=== PATIENT | female | born 1985 | race Caucasian/White ===

== ENCOUNTER 2021-02-21 12:41 | Emergency (ER) | payer MEDICAID, SELFPAY ==
[2021-02-21 13:39] VITALS: BP 107/71; PULSE 64; RESP 22; TEMP 36.9; O2SAT 99
[2021-02-21 17:29] LABS: Basophils # 0.1 10^3/uL (0.0-0.1); Basophils % 1.1 %; Eosinophils # 0.4 10^3/uL (0.0-0.8); Eosinophils % 4.9 %; Hematocrit 46.3 % (37.0-47.0); Hemoglobin 14.8 g/dL (11.5-15.3); Lymphocytes # 2.7 10^3/uL (0.8-4.8); Lymphocytes % 29.9 %; Mean Corpuscular Hemoglobin 29.6 pg (28.0-34.0); Mean Corpuscular Volume 92.6 fL (81-99); Mean Platelet Volume 11.3 fL (7.4-10.4); Monocytes # 0.4 10^3/uL (0.2-0.9); Monocytes % 4.6 %; Neutrophils # 5.35 10^3/uL (1.8-7.7); Neutrophils % 59.2 %; Nucleated Red Blood Cells % 0 %; Platelet Count 376 10^3/cmm (130-400); Red Cell Distribution Width 12.2 % (12.1-15.1); White Blood Count 9.1 10^3/uL (4.0-10.0)
[2021-02-21 17:52] LABS: HCG, Serum Qual Negative (Negative)
[2021-02-21 17:55] LABS: Alanine Aminotransferase 19 U/L (0-33); Albumin Level 4.6 g/dL (3.5-5.2); Alkaline Phosphatase 52 IU/L (35-105); Aspartate Amino Transferase 17 U/L (0-32); Blood Urea Nitrogen 7 mg/dL (6-20); Calcium 9.1 mg/dL (8.5-10.5); Carbon Dioxide 25 mmol/L (22-29); Chloride 102 mmol/L (98-107); Creatinine Clr Calc Pharmacy 151.0874; Globulin 2.9 g/dL (1.3-4.6); Glomerular Filtration Rate 140.4 mL/min (90-130); Glucose 95 mg/dL (65-115); Lipase 20 U/L (13-60); Osmolality Calculated 282 mOsm/kg (285-295); Sodium 137 mmol/L (136-145); Total Bilirubin 0.4 mg/dL (0.15-1.2); Total Protein 7.5 g/dL (6.6-8.7)
--- NOTE | 2021-02-21 20:24 | CTR_ITS ---
PROCEDURE INFORMATION: Exam: CT Abdomen And Pelvis With Contrast Exam date and time: 02/21/2021 8:24 PM Age: 35 years old Clinical indication: Abdominal pain; Localized; Left lower quadrant (llq); Patient HX: Llq pain; Additional info: Llq pain, HX of diveriticulitis TECHNIQUE: Imaging protocol: Computed tomography of the abdomen and pelvis with contrast. Radiation optimization: All CT scans at this facility use at least one of these dose optimization techniques: automated exposure control; mA and/or kV adjustment per patient size (includes targeted exams where dose is matched to clinical indication); or iterative reconstruction. Contrast material: OMNI 300; Contrast volume: 95 ml; Contrast route: INTRAVENOUS (IV); COMPARISON: CT abdomen pelvis w con* [id number] 03/11/2019 8:37 PM RADIATION DOSE METRICS: Total DLP (mGy-cm): 1293.72 FINDINGS: Liver: Probable subcentimeter cyst in the left hepatic lobe, unchanged. Gallbladder and bile ducts: Normal. No calcified stones. No ductal dilation. Pancreas: Normal. No ductal dilation. Spleen: Probable subcentimeter cyst in the spleen. Adrenal glands: Normal. No mass. Kidneys and ureters: Normal. No hydronephrosis. Stomach and bowel: Unremarkable. No obstruction. No mucosal thickening. Appendix: No evidence of appendicitis. Intraperitoneal space: Unremarkable. No free air. No significant fluid collection. Vasculature: Unremarkable. No abdominal aortic aneurysm. Lymph nodes: Unremarkable. No enlarged lymph nodes. Urinary bladder: Unremarkable as visualized. Reproductive: Intrauterine IUD in expected positioning. Persistent 3.5 cm simple cyst in the left ovary. Bones/joints: Unremarkable. No acute fracture. Soft tissues: Unremarkable. CT/CT abdomen pelvis w con* [id number] IMPRESSION: 1. No acute findings. 2. Persistent simple appearing 3.5 cm cyst in the left ovary, unchanged from 2019 study. Radiation Dose CTDIVOL = (mGy): DLP = 1293.72 (mGy-cm)
--- NOTE | 2021-02-21 20:25 | W.ED.ABDPA2 ---
HPI - Abdominal Pain General: Chief Complaint: Abdominal Pain Stated Complaint: LLQ ABD PAIN,[place] [facility] [place] Seen by Provider: 02/21/21 20:24 History of Present Illness: HPI narrative: 35-year-old female comes in today with left lower quadrant abdominal pain for about 1 week. Patient reports last week was helping move a refrigerator and felt a pop in her left lower quadrant. Patient does have a history of diverticulitis and colitis. Patient was concerned for probable hernia. Patient appears well. Patient appears in mild to moderate pain. MD elicited complaint: abdominal pain Pertinent past history: diverticulitis Onset (ago): day(s) Pain Consistency: intermittent Location: LLQ Quality: aching Exacerbating factors: bowel movement Review of Systems General: Reports: 10 or more systems reviewed and unremarkable except in HPI and below GI: Reports: abdominal pain PFSH ED PFSH: Social History (Updated 08/12/20 @ 16:49 by Olimpia Mcguire LPN) Smoking and tobacco status: current every day smoker Physical Exam Const: COMMON NORMALS: no acute distress and patient oriented x3 GENERAL APPEARANCE: cooperative HENMT: COMMON NORMALS: normocephalic and Normal external nose present HEAD & SCALP: normal to inspection and normocephalic NOSE: Normal external nose present MOUTH: Normal oral and palatal mucosa present Eye: GENERAL EYE: appearance normal, both eyes and all related structures Neck/C-Spine: COMMON NORMALS: full ROM Lymph: LYMPHATIC: no lymphadenopathy noted Chest: COMMONS NORMALS: normal inspection of the chest Resp: COMMON NORMALS: normal respiratory effort EFFORT & INSPECTION: Yes able to speak in complete sentences Cardio: COMMON NORMALS: regular rate and regular rhythm RATE: regular rate RHYTHM: regular rhythm GI: COMMON NORMALS: Soft to palpation AUSCULTATION: Yes normoactive bowel sounds PALPATION: Yes Soft to palpation and Yes Tenderness to palpation present (GI) Details: LLQ : COMMON NORMALS: Yes no CVA tenderness BLADDER/KIDNEY EXAM: Yes no CVA tenderness Back/Pelvis: COMMON NORMALS: no CVA tenderness and thoracic and lumbar spine normal to inspection Extremity: COMMON NORMALS: normal to inspection Neuro: COMMON NORMALS: patient oriented x3 and moves all extremities Psych: COMMON NORMALS: mental status grossly normal and cooperative Skin: COMMON NORMALS: no rashes or lesions noted GENERAL SKIN EXAM: no rashes or lesions noted Course Vital Signs: Vital signs: Vital Signs Temperature 98.5 F 02/21/21 13:39 Pulse Rate 71 02/21/21 20:46 Respiratory Rate 18 02/21/21 20:46 Blood Pressure 102/62 02/21/21 20:46 Pulse Oximetry 97 02/21/21 20:46 MDM - Abdominal Pain MDM Narrative: Medical decision making narrative: 35-year-old female comes in with left lower quadrant abdominal pain. Patient admits to lifting a heavy object last week and since then has had left lower quadrant abdominal pain. Patient was concerned that she may have a hernia. Patient reports increased pain with bowel movement. Vital signs are normal. Abdomen is soft with some left lower quadrant abdominal pain. Differential diagnosis includes but not limited to diverticulitis, hernia, bowel obstruction. Laboratory values were unremarkable. CT scan abdomen pelvis indicated a simple cyst to the left ovary but otherwise a normal exam. Reviewed exam with patient with recommendations for treatment for a muscle strain. Patient reported understanding agreed to plan. Lab Data: Labs: Lab Results 02/21/21 02/21/21 02/21/21 Range/Units 17:14 17:14 17:14 WBC 9.1 (4.0-10.0) 10^3/ uL RBC 5.00 (4.1-5.3) 10^6/u L Hgb 14.8 (11.5-15.3) g/dL Hct 46.3 (37.0-47.0) % MCV 92.6 (81-99) fL MCH 29.6 (28.0-34.0) pg MCHC 32.0 (30.0-36.0) g/dL RDW 12.2 (12.1-15.1) % Plt Count 376 (130-400) 10^3/c mm MPV 11.3 H (7.4-10.4) fL Neut % (Auto) 59.2 % Lymph % (Auto) 29.9 % [place] % (Auto) 4.6 % Eos % (Auto) 4.9 % Baso % (Auto) 1.1 % Neut # (Auto) 5.35 (1.8-7.7) 10^3/u L Lymph # (Auto) 2.7 (0.8-4.8) 10^3/u L [place] # (Auto) 0.4 (0.2-0.9) 10^3/u L Eos # (Auto) 0.4 (0.0-0.8) 10^3/u L Baso # (Auto) 0.1 (0.0-0.1) 10^3/u L Nucleated RBC % (a uto) 0 % Nucleated RBCs # 0.0 /100WBC Sodium 137 (136-145) mmol/L Potassium 4.0 (3.5-5.1) mmol/L Chloride 102 (98-107) mmol/L Carbon Dioxide 25 (22-29) mmol/L Anion Gap 14.0 (5-19) BUN 7 (6-20) mg/dL Creatinine 0.5 (0.5-0.9) mg/dL GFR Calculation 140.4 H (90-130) mL/min Glucose 95 (65-115) mg/dL Calculated Osmolal ity 282 L (285-295) mOsm/k g Calcium 9.1 (8.5-10.5) mg/dL Total Bilirubin 0.4 (0.15-1.2) mg/dL AST 17 (0-32) U/L ALT 19 (0-33) U/L Alkaline Phosphata se 52 (35-105) IU/L Total Protein 7.5 (6.6-8.7) g/dL Albumin 4.6 (3.5-5.2) g/dL Globulin 2.9 (1.3-4.6) g/dL Lipase 20 (13-60) U/L HCG, Qual Negative (Negative) Urine Color (Yellow) Urine Appearance (CLEAR) Urine pH (5-7) Ur Specific Gravit y (1.005-1.030) Urine Protein (Negative) Urine Glucose (UA) (Normal) Urine Ketones (Negative) Urine Blood (Negative) Urine Nitrate (Negative) Urine Bilirubin (Negative) Urine Urobilinogen (Negative) mg/dL Ur Leukocyte Lizz ase (Negative) Urine RBC (0-2) /hpf Urine WBC (0-5) /hpf Ur Squamous Epith Cells (0-5) /hpf Amorphous Sediment Urine Bacteria (NONE) /hpf Urine Mucus /hpf 02/21/ Range/Units 20:38 WBC (4.0-10.0) 10^3/ uL RBC (4.1-5.3) 10^6/u L Hgb (11.5-15.3) g/dL Hct (37.0-47.0) % MCV (81-99) fL MCH (28.0-34.0) pg MCHC (30.0-36.0) g/dL RDW (12.1-15.1) % Plt Count (130-400) 10^3/c mm MPV (7.4-10.4) fL Neut % (Auto) % Lymph % (Auto) % [place] % (Auto) % Eos % (Auto) % Baso % (Auto) % Neut # (Auto) (1.8-7.7) 10^3/u L Lymph # (Auto) (0.8-4.8) 10^3/u L [place] # (Auto) (0.2-0.9) 10^3/u L Eos # (Auto) (0.0-0.8) 10^3/u L Baso # (Auto) (0.0-0.1) 10^3/u L Nucleated RBC % (a uto) % Nucleated RBCs # /100WBC Sodium (136-145) mmol/L Potassium (3.5-5.1) mmol/L Chloride (98-107) mmol/L Carbon Dioxide (22-29) mmol/L Anion Gap (5-19) BUN (6-20) mg/dL Creatinine (0.5-0.9) mg/dL GFR Calculation (90-130) mL/min Glucose (65-115) mg/dL Calculated Osmolal ity (285-295) mOsm/k g Calcium (8.5-10.5) mg/dL Total Bilirubin (0.15-1.2) mg/dL AST (0-32) U/L ALT (0-33) U/L Alkaline Phosphata se (35-105) IU/L Total Protein (6.6-8.7) g/dL Albumin (3.5-5.2) g/dL Globulin (1.3-4.6) g/dL Lipase (13-60) U/L HCG, Qual (Negative) Urine Color Yellow (Yellow) Urine Appearance Clear (CLEAR) Urine pH 5 (5-7) Ur Specific Gravit y 1.020 (1.005-1.030) Urine Protein Neg (Negative) Urine Glucose (UA) Norm (Normal) Urine Ketones 1+ H (Negative) Urine Blood Neg (Negative) Urine Nitrate Negative (Negative) Urine Bilirubin Neg (Negative) Urine Urobilinogen Norm (Negative) mg/dL Ur Leukocyte Lizz ase 1+ H (Negative) Urine RBC 0-4 H (0-2) /hpf Urine WBC 0-4 H (0-5) /hpf Ur Squamous Epith Cells 10-15 H (0-5) /hpf Amorphous Sediment Not Reportable Urine Bacteria Trace (NONE) /hpf Urine Mucus Trace /hpf Discharge Plan Discharge Patient Disposition: Home Clinical Impression: Abdominal muscle strain Qualifiers: Encounter type: initial encounter Qualified Code(s): S39.011A - Strain of muscle, fascia and tendon of abdomen, initial encounter Condition: Stable Prescriptions: No Action Tylenol 325 mg Tablet 325 mg PO QID PRN (Reason: PAIN/FEVER) RF: 0 Gas Relief (simethicone) 125 mg Capsule 125 mg PO DAILY PRN (Reason: UNKNOWN) RF: 0 Dramamine 50 mg Tablet 50 mg PO Q8H PRN (Reason: UNKNOWN) RF: 0 Excedrin Migraine 250-250-65 mg Tablet 1 tab PO Q6H PRN (Reason: Migraine Headache) RF: 0 Discharge Orders: Discharge ED (Routine); Ordered 02/21/21 Ordered By: Manuel Ruiz Discharge Diet: Usual diet Discharge Activity: Increase activity as tolerated Patient Instructions: Muscle Strain (ED), Opioid Safety Activity Restrictions/Additional Instructions: Activity as tolerated. Use ice or heat to the area for comfort. Use acetaminophen or ibuprofen for pain. Drink plenty of water. Follow-up with primary care as needed. Return to the ER for new concerns. Stand Alone Forms: Work/School Release Coding Level of Care Code ED Parking Garage Manager for Chg Fwd Exam Comprehensive
[2021-02-21 20:46] VITALS: BP 102/62; PULSE 71; RESP 18; O2SAT 97
[2021-02-21] MEDS: ondansetron 2 mg/ML SDV 2 mL 4 MG IVP (20:53)
[2021-02-21] MEDS: ketorolac 30 mg/mL INJ 15 MG IVP (20:53)
[2021-02-21] MEDS: sodium chloride 0.9% 1,000 ML 999 ML IV (20:54)
[2021-02-21] MEDS: iohexol 300 mg/mL 100 mL Btl IV (21:06)
[2021-02-21 21:17] LABS: Add Urine Culture? No; Bacteria Urine TRACE /hpf; Bilirubin Urine Neg (Negative); Blood Urine Neg (Negative); Glucose Urine UA Norm (Normal); Ketones Urine 1+ (Negative); Leukocyte Esterase Urine 1+ (Negative); Mucus Urine TRACE /hpf; Nitrate Urine Negative (Negative); Protein Urine Neg (Negative); RBC Urine 0-4 /hpf (0-2); Urine Appearance Clear (CLEAR); Urine Color Yellow (Yellow); Urobilinogen Urine Norm (Negative); WBC Urine 0-4 /hpf (0-5); pH Urine 5 (5-7)
[2021-02-21 22:00] VITALS: BP 110/68; PULSE 69; RESP 16; O2SAT 98
== END 2021-02-21 22:26 | disposition home or self-care (01) ==
PROVIDERS: Physician Assistant; Emergency Provider Nurse Practitioner Family
DX: S39.011A Strain of muscle, fascia and tendon of abdomen, initial encounter (principal); F17.210 Nicotine dependence, cigarettes, uncomplicated; X50.0XXA Overexertion from strenuous movement or load, initial encounter
CPT/HCPCS: 74177; 80053; 81001; 83690; 84703; 85025; 87040; 96361; 96374; 96375; 99284; J1885; J2405; J7030; Q9967

== ENCOUNTER → 2021-03-27 11:31 | Outpatient (BNVA) | payer OTHER, SELFPAY | PROVIDERS: Visit Provider Nurse Practitioner Family | DX: Z20.822 Contact with and (suspected) exposure to COVID-19 (principal); J06.9 Acute upper respiratory infection, unspecified | CPT/HCPCS: 87635 ==

== ENCOUNTER 2022-05-14 10:59 | Outpatient (CLI) | payer MEDICAID, SELFPAY ==
--- NOTE | 2022-05-14 11:04 | MM_ITS ---
WS: [id number] SCREENING DIGITAL BREAST TOMOSYNTHESIS MAMMOGRAM WITH CAD HISTORY: SCREENING COMPARISON: 07/26/2014 Bilateral CC and MLO with tomosynthesis and synthetic mammography submitted. Computer aided detection analyzed. Breast composition: There are scattered areas of fibroglandular density. 6 x 7 mm well-circumscribed nodule in the anterior LEFT breast near 9:00. The remaining breasts are negative. No calcifications. MM/[place] [id number] IMPRESSION: BI-RADS: 0-Incomplete: Need additional imaging evaluation FOLLOW UP: Need Additional Imaging Recommendation: LEFT breast ultrasound follow-up, limited. Ultrasound directed medial LEFT breast at the nipple line, 8-10 o'clock.
== END 2022-05-14 11:00 | disposition home or self-care (01) ==
LOC: RAD 10:59
PROVIDERS: Visit Provider Family Medicine
DX: Z12.31 Encounter for screening mammogram for malignant neoplasm of breast (principal)
CPT/HCPCS: 77063; 77067

== ENCOUNTER 2022-09-30 08:00 | Outpatient (CLI) | payer MEDICAID, SELFPAY ==
--- NOTE | 2022-09-30 08:11 | US_ITS ---
WS: [id number] ULTRASOUND LEFT BREAST HISTORY: L BREAST NODULE ON MAMMOGRAM COMPARISON: Prior ultrasound 07/26/2014 and mammogram 05/14/2022 TECHNIQUE: 2-D and Doppler. At 11:00, 1 cm from the nipple is a hypoechoic round mass without through transmission measuring 6 x 3 x 6 mm. This corresponds to the mammographic abnormality. No duct dilatation. Nonspecific mass may be a complex cyst or fibroadenoma. US/US breast LT limited* [id number] IMPRESSION: BI-RADS: 4-Suspicious Finding-Biopsy Should Be Considered FOLLOW-UP: Biopsy Recommended Ultrasound-guided biopsy recommended of the LEFT breast mass at 11:00, 1 cm fro m the nipple. As this is not a simple cyst recommend biopsy.
== END 2022-09-30 08:01 | disposition home or self-care (01) ==
LOC: RAD 08:05
PROVIDERS: PCP Family Medicine; Visit Provider Family Medicine
DX: N63.21 Unspecified lump in the left breast, upper outer quadrant (principal)
CPT/HCPCS: 76642

== ENCOUNTER 2022-10-16 10:49 | Emergency (ER) | payer MEDICAID, SELFPAY ==
[2022-10-16 11:13] VITALS: BP 119/78; PULSE 87; RESP 15; TEMP 37.3; O2SAT 100; BMI 23.1
--- NOTE | 2022-10-16 11:20 | XR_ITS ---
WS: [id number] Exam: XR sacrum coccyx min 2V [id number] Date/Time of Exam: 10/16/2022 11:20 AM Reason For Exam: fall w/ tailbone pain No fracture or dislocation. Mild DJD of both SI joints. The SI joints are open. A T-type IUD seen in the right pelvis. XR/XR sacrum coccyx min 2V [id number] IMPRESSION: 1. No fracture or dislocation noted.
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
[2022-10-16 12:17] VITALS: RESP 20
[2022-10-16] MEDS: oxyCODONE-APAP 5-325 mg Tablet 1 TAB PO (12:17)
--- NOTE | 2022-10-16 12:18 | PC.NURSE ---
prior to adm oxycodone pt educated that she should not drink or drive for 8 hours she verbalized understanding stating, my dads driving .
[2022-10-16] MEDS: orphenadrine 30 mg/mL Inj 2 mL 60 MG IM (12:51)
[2022-10-16] MEDS: ketorolac 60 mg/2 mL INJ IM (12:51)
[2022-10-16 13:06] VITALS: BP 103/64; PULSE 93; RESP 16; O2SAT 95
== END 2022-10-16 13:08 | disposition home or self-care (01) ==
PROVIDERS: Emergency Provider Physician Assistant; PCP Family Medicine
DX: M53.3 Sacrococcygeal disorders, not elsewhere classified (principal); F17.210 Nicotine dependence, cigarettes, uncomplicated
CPT/HCPCS: 72220; 96372; 99284; J1885; J2360

== ENCOUNTER 2022-10-24 08:24 | Outpatient (CLI) | payer MEDICAID, SELFPAY ==
--- NOTE | 2022-10-24 08:35 | US_ITS ---
WS: [email or web address] ULTRASOUND-GUIDED LEFT BREAST BIOPSY CLINICAL INFORMATION: ABNORMAL MAMMO/L BREAST MASS COMPARISON: September 30, 2022 FINDINGS: The procedure including risks, benefits, and complications were discussed with the patient who agreed to proceed. Using sterile technique patient was prepped and draped in the usual sterile fashion. Aft er 1% lidocaine utilizing real-time ultrasound guidance 3 14-gauge cores were obtained of the LEFT br east lesion at the 11 o'clock position. Lesion collapsed after the 1st sample. Subsequently a titaniu m clip was placed in the biopsy cavity. No immediate complications. Pathology demonstrates A. Breast, left, 11 o'clock, 1 cm from nipple, ultrasound-guided biopsy: - Benign fibrocystic disease with focal adenosis. - No malignancy identified. US/[place] [id number] IMPRESSION: 1. Uncomplicated ultrasound-guided LEFT breast biopsy. 2. The pathology demonstrates benign fibrocystic disease. No malignancy. 3. Recommend return to annual screening mammography. BI-RADS: 2-Benign FOLLOW UP: 1 Year Follow-up
== END 2022-10-24 08:25 | disposition home or self-care (01) ==
LOC: RAD 08:26
PROVIDERS: PCP Family Medicine; Visit Provider Family Medicine
DX: N63.22 Unspecified lump in the left breast, upper inner quadrant (principal); N60.22 Fibroadenosis of left breast
CPT/HCPCS: 19083; 88305

== ENCOUNTER 2023-05-04 16:28 | Outpatient (CLI) | payer MEDICAID, SELFPAY ==
--- NOTE | 2023-05-04 17:15 | US_ITS ---
WS: [id number] RENAL ULTRASOUND HISTORY: right flank pain COMPARISON: None available. TECHNIQUE: 2-D and color Doppler imaging of the kidney submitted. Right kidney: 10.5 cm x 4.6 cm x 3.7 cm. Cortex: 1.2 cm Normal echogenicity with no hydronephrosis or mass. Left kidney: 11.1 cm x 4.3 cm x 4.1 cm. Cortex: 1.1 cm Normal echogenicity with no hydronephrosis or mass. Aorta: Normal. Urinary Bladder: Nondistended. IMPRESSION: Normal renal ultrasound.
== END 2023-05-04 16:29 | disposition home or self-care (01) ==
PROVIDERS: PCP Family Medicine; Visit Provider Family Medicine
DX: R10.9 Unspecified abdominal pain (principal)
CPT/HCPCS: 76770

== ENCOUNTER → 2023-05-05 11:01 | Outpatient (BNVA) | payer MEDICAID, SELFPAY | PROVIDERS: PCP Family Medicine; Visit Provider Nurse Practitioner Women's Health | DX: N92.0 Excessive and frequent menstruation with regular cycle (principal); N83.202 Unspecified ovarian cyst, left side | CPT/HCPCS: 76830 ==

== ENCOUNTER 2023-05-13 14:39 | Outpatient (CLI) | payer MEDICAID, SELFPAY ==
--- NOTE | 2023-05-13 14:55 | CT_ITS ---
WS: [id number] CT ABDOMEN AND PELVIS NONCONTRAST HISTORY: RIGHT FLANK PAIN TECHNIQUE: Imaging performed through the abdomen and pelvis. Coronal and sagittal reformats are submi tted. All CT scans at [facility] use at least one of these dose optimization techniques: auto mated exposure control; mA and/or kV adjustment per patient size (includes targeted exams where dose is matched to clinical indication); or iterative reconstruction. DLP: 312.17 mGy.cm COMPARISON: 02/21/2021 Lower thorax: Lung bases are clear. Visualized heart is normal. No hiatal hernia. Liver: Normal size liver. No mass or bile duct dilatation. Gallbladder: Normal gallbladder. No pericholecystic fluid or cholelithiasis. No gallbladder wall thic kening. Pancreas: Normal size and attenuation. Normal pancreatic duct. No pancreatitis or mass. Spleen: Normal. Adrenal glands: Normal. No mass. Right kidney: Normal size kidney with no mass or hydronephrosis. Left kidney: Normal size kidney with no mass or hydronephrosis. Aorta: Normal abdominal aorta, no aneurysm or atherosclerosis. No free fluid, intraperitoneal air or significant lymphadenopathy. GI tract: Normal noncontrast imaging of the stomach, small bowel and colon. No obstruction or wall th ickening. Normal appendix. Abdominal wall: Negative. No hernia. Pelvis: LEFT ovarian cyst measures 3.7 x 3.8 cm. Recently described also by ultrasound. There is an I UD present. Normal size RIGHT ovary. Osseous structures: Unremarkable. IMPRESSION: 1. No renal calcifications or obstruction. No hydronephrosis. 2. Normal appendix. 3. IUD noted within the uterine body.
== END 2023-05-13 14:40 | disposition home or self-care (01) ==
PROVIDERS: PCP Family Medicine; Visit Provider Family Medicine
DX: R10.9 Unspecified abdominal pain (principal); Z97.5 Presence of (intrauterine) contraceptive device
CPT/HCPCS: 74176

== ENCOUNTER 2023-06-25 09:43 | Day surgery (SDC) | payer MEDICAID, SELFPAY ==
[2023-06-25] VITALS (9 sets, daily range): BP systolic 99–111; BP diastolic 53–74; PULSE 56–72; RESP 14–18; TEMP 36.2–36.6; O2SAT 93–97; BMI 24.3
--- NOTE | 2023-06-25 08:10 | W.PM.OPSFHP ---
Same Day Surgery H&P Indication for Procedure/HPI DATE OF PROCEDURE: June 25, 2023 CHIEF COMPLAINT/INDICATIONFOR SURGICAL PROCEDURE: abnormal uterine bleeding PREOP DIAGNOSIS: abnormal uterine bleeding PLANNED PROCEDURE: Operation Date: 06/25/23 11:35 Proposed Procedures p Removal of intrauterine device 48101,N93.9,N92.3(Not Applicable) - Jaycob Ramachandran MD s Hysteroscopy, endomtrial sampling 05958(Not Applicable) - Jaycob Ramachandran MD s possible endometrial polypectomy 50710(Not Applicable) - Jaycob Ramachandran MD 37 y.o. with mirena intrauterine device in place with intermittent irregular spotting now scheduled for removal of intrauterine device, hysteroscopy, endometrial sampling, possible endometrial polypectomy Medications/Allergies* Home Medications Medication Instructions Recorded Confirmed Type acetaminophen 325 mg tablet 325 mg PO QID PRN PAIN/FEVER 02/21/21 06/24/23 History (Tylenol) ktlilia-krawaqhzxrnxx-hcwqhejt 250 1 tab PO Q6H PRN Migraine Headache 02/21/21 06/24/23 History mg-250 mg-65 mg tablet (Excedrin Migraine) dimenhydrinate 50 mg tablet 50 mg PO Q8H PRN UNKNOWN 02/21/21 06/24/23 History (Dramamine) levocetirizine 5 mg tablet 5 mg PO DAILY 04/30/23 06/24/23 History sertraline 50 mg tablet 50 mg PO DAILY 04/30/23 06/24/23 History fluticasone 250 mcg-salmeterol 50 250 inh inhalation 2XD 06/24/23 06/24/23 History mcg/dose blistr powdr for inhalation (Advair Diskus) latanoprost 0.005 % eye drops See Rx Instructions .Route .COMPLEX 06/24/23 06/24/23 History Allergies/Adverse Reactions Allergy/AdvReac Type Severity Reaction Status Date / Time amoxicillin Allergy Severe throat Verified 06/24/23 12:45 swelling Penicillins Allergy Severe throat Verified 06/24/23 12:45 swelling codeine Allergy hives Verified 06/24/23 12:45 Pertinent History/Comorbid Conditions* Medical History (Updated 05/31/23 @ 02:54 by Jaycob Ramachandran MD) No pertinent family history Surgical History (Updated 10/17/22 @ 07:42 by JAZMYN Emerson) No pertinent past surgical history Family History (Updated 05/22/23 @ 09:57 by Taimka Olguin LPN) Colon cancer Family/Other maternal cousin maternal aunt Ovarian cancer Sister Diabetes Mother Grandmother maternal Family/Other maternal Grandfather paternal Heart disease Mother Grandmother maternal Hyperlipidemia Mother Father Breast cancer Mother Grandmother paternal maternal Family/Other maternal aunt Uterine cancer Sister Stroke Mother Denies family history of Prostate cancer Hypertension Pertinent Exam Findings alert, oriented x 3, clear to auscultation bilaterally and regular rate & rhythm Recommendations Surgery/Procedure today Coding Level of Care Code Acute Code for Chg Fwd Time Spent (min) 20
[2023-06-25 10:05] LABS: OR HCG Qualitative Urine Negative (Negative)
[2023-06-25] MEDS: sodium chloride 0.9% 1,000 ML 30 ML IV (10:12)
[2023-06-25] MEDS: scopolamine 1.5 Patch 1 PATCH TRANSDERMA (10:13)
--- NOTE | 2023-06-25 10:42 | ANES.PREANE2 ---
Pre-Anesthetic Assessment Height/Weight: Height 1.63 m Weight 64.41 kg Temp Pulse Resp BP Pulse Ox O2 Del Method 97.6 F 66 18 111/58 97 Room Air 06/25/23 09:55 06/25/23 09:55 06/25/23 09:55 06/25/23 09:55 06/25/23 09:55 06/25/23 09:56 Preop Diagnosis: abnormal uterine bleeding Operation Date: 06/25/23 11:35 Proposed Procedures p Removal of intrauterine device 44488,N93.9,N92.3(Not Applicable) - Jaycob Ramachandran MD s Hysteroscopy, endomtrial sampling 42763(Not Applicable) - Jaycob Ramachandran MD s possible endometrial polypectomy 16188(Not Applicable) - Jaycob Ramachandran MD Familial anesthetic complications: none Was Beta Deon taken within 24 hours: N/A Was Clonidine taken within 24 hours: N/A Last intake: Intake Last Liquid Date 06/24/23 Last Liquid Time 23:30 Last Solid Date 06/24/23 Last Solid Time 23:30 Social No alcohol and No tobacco Exam alert, oriented x 3, clear to auscultation bilaterally and regular rate & rhythm Airway Submandibular: within normal limits Cervical ROM: within normal limits Mallampati: Class II Dentition: chipped Comments: Comments: Very poor dentition, multiple caries and chips Neuropsych Anxiety and Depression Anesthetic Plan ASA status: 2 Anesthesia: General Medications/Allergies Home Medications Medication Instructions Recorded Confirmed Last Taken Type acetaminophen 325 mg tablet 325 mg PO QID PRN PAIN/FEVER 02/21/21 06/24/23 05/19/23 History (Tylenol) bwicufq-rkopwnwxpdacj-gpjoctid 250 1 tab PO Q6H PRN Migraine Headache 02/21/21 06/24/23 05/11/23 History mg-250 mg-65 mg tablet (Excedrin Migraine) dimenhydrinate 50 mg tablet 50 mg PO Q8H PRN UNKNOWN 02/21/21 06/24/23 Unknown History (Dramamine) methocarbamol 750 mg tablet 750 mg PO Q8H PRN Muscle spasms 10/16/22 06/25/23 06/24/23 Rx and pain #20 tabs levocetirizine 5 mg tablet 5 mg PO DAILY 04/30/23 06/24/23 06/24/23 History sertraline 50 mg tablet 50 mg PO DAILY 04/30/23 06/25/23 06/24/23 History fluticasone 250 mcg-salmeterol 50 250 inh inhalation 2XD 06/24/23 06/24/23 06/24/23 History mcg/dose blistr powdr for inhalation (Advair Diskus) latanoprost 0.005 % eye drops See Rx Instructions .Route .COMPLEX 06/24/23 06/24/23 06/23/23 History Allergies Allergy/AdvReac Type Severity Reaction Status Date / Time amoxicillin Allergy Severe throat Verified 06/25/23 10:00 swelling Penicillins Allergy Severe throat Verified 06/25/23 10:00 swelling codeine Allergy hives Verified 06/25/23 10:00 Current Medications Generic Name Dose Route Start Last Admin Trade Name Freq PRN Reason Stop Dose Admin Sodium Chloride 1,000 mls @ 30 mls/hr 06/25/23 10:00 06/25/23 10:12 Sodium Chloride 0.9% IV 06/26/23 09:59 30 mls/hr .Q24H RADHA Administration PFSH Anesthesia Medical History (Updated 05/31/23 @ 02:54 by aJycob Ramachandran MD) No pertinent family history Surgical History No pertinent past surgical history Family History (Updated 05/22/23 @ 09:57 by Tamika Olguin LPN) Mother Breast cancer Diabetes Heart disease Hyperlipidemia Stroke Grandmother Breast cancer paternal maternal Diabetes maternal Heart disease maternal Family/Other Breast cancer maternal aunt Colon cancer maternal cousin maternal aunt Diabetes maternal Grandfather Diabetes paternal Father Hyperlipidemia Sister Ovarian cancer Uterine cancer Denies family history of Prostate cancer Hypertension Data Anesthesia Cardiac Studies: No Data to Display
--- NOTE | 2023-06-25 10:44 | W.PM.OPSUD ---
Surgery/Procedure H&P Update DATE OF PROCEDURE: June 25, 2023 DATE H&P PERFORMED: 06/25/23 H&P UPDATE INFORMATION: I have reviewed H&P completed within last 30 days, I have examined patient prior to procedure and No changes to prior documentation PREOP DIAGNOSIS: abnormal uterine bleeding PRIMARY INDICATION FOR PROCEDURE: abnormal uterine bleeding PLANNED PROCEDURE: Operation Date: 06/25/23 11:35 Proposed Procedures p Removal of intrauterine device 19115,N93.9,N92.3(Not Applicable) - Jaycob Ramachandran MD s Hysteroscopy, endomtrial sampling 77262(Not Applicable) - Jaycob Ramachandran MD s possible endometrial polypectomy 34805(Not Applicable) - Jaycob Ramachandran MD
--- NOTE | 2023-06-25 15:55 | ANE.PACU2 ---
Inpatient post-anesthesia follow up: Airway intact: Yes Vital signs: Temperature 97.4 F Pulse Rate 67 Respiratory Rate 18 Blood Pressure 109/53 Pulse Oximetry 96 Oxygen Delivery Me thod Room Air Oxygen Flow Rate Fraction of Inspir ed Oxygen Hydration adequate: Yes Nausea and vomiting: No Pain level: 2 Mental status: Baseline
--- NOTE | 2023-06-25 19:21 | PM.OP ---
Operative Report Date of procedure: June 25, 2023 Pre-op diagnosis: intrauterine device in place abnormal uterine bleeding Post-op diagnosis: same Post-op findings: Paragard intrauterine device, discarded normal-sized endometrial cavity + several endometrial polyps + moderate amount of fluffy endometrial tissue Procedure done: Removal of intrauterine device hysteroscopy Endometrial sampling with Myosure Endometrial polypectomy Curettage of uterus Implants: none Specimens removed/disposition: Paragard intrauterine device, discarded endometrial curettings Surgeon: Jaycob Ramachandran MD Anesthesia: MAC Estimated blood loss (mL): 5 Complications: none Condition: stable Disposition: PACU Brief History: 37 y.o. with intrauterine device in place x four years with intermittent bleeding every two weeks scheduled for removal of intrauterine device, hysteroscopy, endometrial sampling, possible endometrial polypectomy Procedure: Informed consent signed. Patient taken to the operating room. Anesthesia induced. Patient was placed in dorsolithotomy position, prepped and draped for hysteroscopy. A bivalve speculum was placed in the vagina. The intrauterine device string was seen at the cervical os. The intrauterine device was removed, seen to be a Paragard intrauterine device, and discarded. The anterior lip of the cervix was grasped with a sharp-toothed tenaculum. The uterus was sounded to 8 cm. The cervix was serially dilated with Hegar dilators. . A hysteroscope was placed into the endometrial cavity. The endometrial cavity was seen to be normal-sized. There were several 1-2 cm endometrial polyps. There was moderate amount of fluffy appearing endometrial tissue. The Myosure device was used to remove the polyps and excess endometrial tissue. The hysteroscope was then removed. Endometrial curettage was done with a sharp curette. Endometrial tissue was sent to pathology. The sharp-toothed tenaculum was removed. There was no bleeding from the endometrial cavity or cervix. The patient was then placed supine and awakened and taken to the PACU. Postop condition: stable EBL: 5 cc Sponge and instruments counts were normal x 2 Complications: none
== END 2023-06-25 12:36 | disposition home or self-care (01) ==
PROVIDERS: Anesthesiology; PCP Family Medicine; Visit Provider Obstetrics & Gynecology
PROC: (CPT 58301; principal; 2023-06-25 11:25)
PROC: 0UDB8ZZ Extraction of Endometrium, Via Natural or Artificial Opening Endoscopic (ICD-10-PCS; CPT 58558; 2023-06-25 11:25)
DX: N93.9 Abnormal uterine and vaginal bleeding, unspecified (principal); N84.0 Polyp of corpus uteri; Z30.431 Encounter for routine checking of intrauterine contraceptive device
CPT/HCPCS: 58558; 81025; 84703; 88305; J1100; J2250; J2405; J2704; J3010; J7030

== ENCOUNTER 2023-08-13 13:25 | Inpatient (IN) | payer MEDICAID, SELFPAY ==
[2023-08-13] VITALS (15 sets, daily range): BP systolic 90–110; BP diastolic 50–74; PULSE 77–120; RESP 14–18; TEMP 35.9–37.1; O2SAT 93–97; BMI 23.8; BMI 17.7
--- NOTE | 2023-08-13 05:45 | W.PM.OPSFHP ---
Same Day Surgery H&P Indication for Procedure/HPI DATE OF PROCEDURE: August 13, 2023 CHIEF COMPLAINT/INDICATIONFOR SURGICAL PROCEDURE: abnormal uterine bleeding, chronic menorrhagia PREOP DIAGNOSIS: abnormal uterine bleeding, chronic menorrhagia PLANNED PROCEDURE: Operation Date: 08/13/23 10:40 Proposed Procedures p Laparoscopic assisted vaginal hysterectomy 5855, possible total abdominal hysterectomy 67020,N93.9(Not Applicable) - Jaycob Ramachandran MD s Total Abdominal Hysterectomy(Not Applicable) - Jaycob Ramachandran MD 37 y.o. with history of heavy menstrual bleeding now scheduled for hysterectomy for definitive treatment Medications/Allergies* Home Medications Medication Instructions Recorded Confirmed Type acetaminophen 325 mg tablet 325 mg PO QID PRN PAIN/FEVER 02/21/21 08/12/23 History (Tylenol) lbxpdgl-jbcwxyizkbays-wjwtwvbp 250 1 tab PO Q6H PRN Migraine Headache 02/21/21 08/12/23 History mg-250 mg-65 mg tablet (Excedrin Migraine) dimenhydrinate 50 mg tablet 50 mg PO Q8H PRN UNKNOWN 02/21/21 08/12/23 History (Dramamine) levocetirizine 5 mg tablet 5 mg PO DAILY 04/30/23 08/12/23 History sertraline 50 mg tablet 50 mg PO DAILY 04/30/23 08/12/23 History fluticasone 250 mcg-salmeterol 50 250 inh inhalation 2XD 06/24/23 08/12/23 History mcg/dose blistr powdr for inhalation (Advair Diskus) latanoprost 0.005 % eye drops 0.005 drp ophthalmic (eye) DAILY 06/24/23 08/12/23 History Allergies/Adverse Reactions Allergy/AdvReac Type Severity Reaction Status Date / Time amoxicillin Allergy Severe throat Verified 08/12/23 13:11 swelling Penicillins Allergy Severe throat Verified 08/12/23 13:11 swelling codeine Allergy hives Verified 08/12/23 13:11 Pertinent History/Comorbid Conditions* Medical History (Updated 05/31/23 @ 02:54 by Jaycob Ramachandran MD) No pertinent family history Surgical History (Updated 10/17/22 @ 07:42 by JAZMYN Emerson) No pertinent past surgical history Family History (Updated 05/22/23 @ 09:57 by Tamika Olguin LPN) Colon cancer Family/Other maternal cousin maternal aunt Ovarian cancer Sister Diabetes Mother Grandmother maternal Family/Other maternal Grandfather paternal Heart disease Mother Grandmother maternal Hyperlipidemia Mother Father Breast cancer Mother Grandmother paternal maternal Family/Other maternal aunt Uterine cancer Sister Stroke Mother Denies family history of Prostate cancer Hypertension Pertinent Exam Findings alert, oriented x 3, clear to auscultation bilaterally and regular rate & rhythm Recommendations Surgery/Procedure today Coding Level of Care Code Acute Code for Chg Fwd Time Spent (min) 20
--- NOTE | 2023-08-13 08:10 | W.PM.OPSUD ---
Surgery/Procedure H&P Update DATE OF PROCEDURE: August 13, 2023 DATE H&P PERFORMED: 08/13/23 H&P UPDATE INFORMATION: I have reviewed H&P completed within last 30 days, I have examined patient prior to procedure and No changes to prior documentation PREOP DIAGNOSIS: abnormal uterine bleeding, chronic menorrhagia PLANNED PROCEDURE: Operation Date: 08/13/23 10:40 Proposed Procedures p Laparoscopic assisted vaginal hysterectomy 5855, possible total abdominal hysterectomy 60459,N93.9(Not Applicable) - Jaycob Ramachandran MD s Total Abdominal Hysterectomy(Not Applicable) - Jaycob Ramachandran MD
[2023-08-13] MEDS: sodium chloride 0.9% 1,000 ML 30 ML IV (09:39)
--- NOTE | 2023-08-13 10:38 | ANES.PREANE2 ---
Pre-Anesthetic Assessment Height/Weight: Height 1.63 m Weight 63.049 kg Temp Pulse Resp BP Pulse Ox O2 Del Method 97.7 F 81 18 100/53 97 Room Air 08/13/23 09:23 08/13/23 09:23 08/13/23 09:23 08/13/23 09:23 08/13/23 09:23 08/13/23 09:24 Preop Diagnosis: chronic menorrhagia Operation Date: 08/13/23 10:40 Proposed Procedures p Total Abdominal Hysterectomy(Not Applicable) - Jaycob Ramachandran MD Familial anesthetic complications: none Was Beta Deon taken within 24 hours: N/A Was Clonidine taken within 24 hours: N/A Last intake: Intake Last Liquid Date 08/12/23 Last Liquid Time 23:50 Last Solid Date 08/12/23 Last Solid Time 23:30 Social No alcohol and No tobacco Exam alert, oriented x 3, clear to auscultation bilaterally and regular rate & rhythm Airway Submandibular: within normal limits Cervical ROM: within normal limits Mallampati: Class II Dentition: chipped Comments: Comments: Very poor dentition Neuropsych Anxiety and Depression Anesthetic Plan ASA status: 2 Anesthesia: General Medications/Allergies Home Medications Medication Instructions Recorded Confirmed Last Taken Type acetaminophen 325 mg tablet 325 mg PO QID PRN PAIN/FEVER 02/21/21 08/12/23 05/19/23 History (Tylenol) vebexpt-sgvhtmdisfypm-moubttko 250 1 tab PO Q6H PRN Migraine Headache 02/21/21 08/12/23 05/11/23 History mg-250 mg-65 mg tablet (Excedrin Migraine) dimenhydrinate 50 mg tablet 50 mg PO Q8H PRN UNKNOWN 02/21/21 08/12/23 Unknown History (Dramamine) levocetirizine 5 mg tablet 5 mg PO DAILY 04/30/23 08/12/23 08/12/23 History sertraline 50 mg tablet 50 mg PO DAILY 04/30/23 08/12/23 08/12/23 History fluticasone 250 mcg-salmeterol 50 250 inh inhalation 2XD 06/24/23 08/12/23 08/12/23 History mcg/dose blistr powdr for inhalation (Advair Diskus) latanoprost 0.005 % eye drops 0.005 drp ophthalmic (eye) DAILY 1208/12/23 08/12/23 History Allergies Allergy/AdvReac Type Severity Reaction Status Date / Time amoxicillin Allergy Severe throat Verified 08/12/23 13:11 swelling Penicillins Allergy Severe throat Verified 08/12/23 13:11 swelling codeine Allergy hives Verified 08/12/23 13:11 Current Medications Generic Name Dose Route Start Last Admin Trade Name Freq PRN Reason Stop Dose Admin Sodium Chloride 1,000 mls @ 30 mls/hr 08/13/23 09:15 08/13/23 09:39 Sodium Chloride 0.9% IV 08/14/23 09:14 30 mls/hr .Q24H RADHA Administration PFSH Anesthesia Medical History (Updated 05/31/23 @ 02:54 by Jaycob Ramachandran MD) No pertinent family history Surgical History No pertinent past surgical history Family History (Updated 05/22/23 @ 09:57 by Tamika Olguin LPN) Mother Breast cancer Diabetes Heart disease Hyperlipidemia Stroke Grandmother Breast cancer paternal maternal Diabetes maternal Heart disease maternal Family/Other Breast cancer maternal aunt Colon cancer maternal cousin maternal aunt Diabetes maternal Grandfather Diabetes paternal Father Hyperlipidemia Sister Ovarian cancer Uterine cancer Denies family history of Prostate cancer Hypertension Female Reproductive History Date of last menstrual period: 08/07/23 Data Anesthesia Cardiac Studies: No Data to Display
[2023-08-13 10:43] LABS: OR HCG Qualitative Urine Negative (Negative)
[2023-08-13] MEDS: clindamycin 600 MG/50 ML PREMIX 100 MG IV (11:02)
[2023-08-13] MEDS: HYDROmorphone 1 mg/mL INJ 1 mL 0.5 MG IVP (13:52)
[2023-08-13 14:03] LABS: Hematocrit 30.4 % (36-47)
--- NOTE | 2023-08-13 14:25 | PM.OP ---
Operative Report Date of procedure: August 13, 2023 Pre-op diagnosis: abnormal uterine bleeding, menorrhagia Post-op diagnosis: same Post-op findings: uterus normal sized normal fallopian tubes Normal right ovary Left ovary with 3 cm benign-appearing clear cyst Normal and intact bladder Procedure done: Total abdominal hysterectomy Implants: none Specimens removed/disposition: uterus Surgeon: Jaycob Ramachandran MD Anesthesia: General Estimated blood loss (mL): 800 Complications: none Condition: stable Disposition: floor Brief History: 37 y.o. with history of menorrhagia Procedure: Informed consent obtained. The patient was taken to the operating room and placed supine on the table. General endotracheal anesthesia was induced. The abdomen was prepped and draped in the usual sterile fashion. A calixto catheter was placed which drained clear urine. A pfannenstiel incision was made and carried down through skin and subcutaneous tissue and fascia. The fascia was sharply incised. The rectus muscles were and the abdomen was entered bluntly in the midline. The pelvic contents were visualized and examined. An Quan-O retractor was placed. The bowels were packed out of the way. The Ligasure device was used throughout for vessel sealing and cutting. The hysterectomy was begun by dividing and ligating the round ligaments bilaterally. The infundibulopelvic ligaments were divided and skeletonized bilaterally. The ovaries were preserved by dividing the uterus from the uteroovarian ligaments. The vesicouterine peritoneal fold was incised in a transverse curvilinear fashion and sharply dissected downward mobilizing the bladder off the lower uterine segment. The uterine vessels were skeletonized and bilaterally divided and ligated. The procedure was carried down on both sides of the uterus until the cardinal uterosacral ligament was reached. The cervix was then incised. The vaginal cuff was identified and the mucosa was from the cervix. In this fashion, the uterus was removed leaving the vaginal cuff. The vaginal cuff was identified and the mucosa was sewn with O-Vicryl. The pelvis was inspected and irrigated. Bleeding points were controlled using stitches of 2-O chromic. The abdominal packs were removed as was the retractor. The fascia was then closed with a continuous stitch of O-Vicryl. The subcutaneous tissue was irrigated and inspected for hemostasis. The skin was then reapproximated using Insorb absorbable subcuticular skin vince. The patient was then placed supine, extubated, and taken to the recovery room. Postoperative condition: stable EBL: 800 cc Complications: none Sponge, needle, instruments counts were correct x two.
[2023-08-13] MEDS: dextrose 5%-lactated ringers 1,000 ML 125 ML IV ×2 (14:53→22:43)
[2023-08-13] MEDS: ondansetron 2 mg/ML SDV 2 mL 4 MG IVP ×2 (14:53→21:50)
[2023-08-13] MEDS: ketorolac 30 mg/mL INJ IVP ×2 (14:53→20:19)
--- NOTE | 2023-08-13 15:47 | ANE.PACU2 ---
Inpatient post-anesthesia follow up: Airway intact: Yes Vital signs: Temperature 96.6 F Pulse Rate 85 Respiratory Rate 14 Blood Pressure 106/67 Pulse Oximetry 96 Oxygen Delivery Me thod Room Air Oxygen Flow Rate Fraction of Inspir ed Oxygen Hydration adequate: Yes Nausea and vomiting: No Pain level: 4 Mental status: Baseline
[2023-08-13] MEDS: docusate sodium 100 mg Capsule PO (16:48)
[2023-08-13] MEDS: HYDROcodone-acetaminophen 5-325 mg Tablet PO ×2 (16:48→22:42)
[2023-08-14] VITALS: BP 95/54; PULSE 105; RESP 16; TEMP 37.1; O2SAT 96
[2023-08-14] MEDS: ketorolac 30 mg/mL INJ IVP ×2 (02:58→08:28)
[2023-08-14 04:00] VITALS: BP 100/67; PULSE 94; RESP 18; TEMP 36.8; O2SAT 97
[2023-08-14 06:00] VITALS: BMI 18.9
[2023-08-14 06:10] LABS: Hematocrit 28.9 % (36-47); Mean Corpuscular HGB Conc 32.9 g/dL (30-55); Mean Corpuscular Hemoglobin 30.7 pg (27-33); Mean Corpuscular Volume 93.5 fl (85-98); Mean Platelet Volume 10.6 fL (7.4-10.4); Platelet Count 262 10^3/cmm (157-399); Red Blood Count 3.09 10^6/uL (3.85-5.65); Red Cell Distribution Width 12.6 % (12.1-15.1); White Blood Count 14.84 10^3/uL (3.29-11.43)
[2023-08-14] MEDS: dextrose 5%-lactated ringers 1,000 ML 125 ML IV (06:20)
[2023-08-14 07:34] VITALS: BP 95/58; PULSE 84; RESP 17; O2SAT 97
[2023-08-14] MEDS: docusate sodium 100 mg Capsule PO (08:28)
--- NOTE | 2023-08-14 09:01 | PC.CHAP ---
Pastoral Care Encounter/Spiritual Assessment Type of Contact [] Declined robotic technician visit [] Patient/Family/Request visit [] Outpatient visit [] Follow-up visit [] Physician referral [] Code/Alert [x] Routine visit [] Staff referral [] Actively dying [] Patient sleeping [] Family support [] [] Out of room [] Palliative care [] [] Receiving care in room [] Pre-surgical visit [] Trauma [] Long length of stay [] ICU visit [] Other: Relational/Emotional Strength [x] Patient feels connected with others/family/visitors/staff [] Distress [] Loneliness/isolation [] Abandonment Spirituality of Patient [] Person of Lor [] Attends Anglican of their Lor [] Believes in Prayer [] Reads Bible or Buddhism materials [] There are Spiritual issues to be addressed Print Operator Interventions [x] Prayer [x] Active listening [] Non-anxious presence [x] Spiritual/emotional support [] Crisis/trauma care [] Spiritual counseling [] Bereavement support [] Provided bereavement packet [] Provided Bible/devotional materials [] Provided toy/stuffed animal, coloring book to patient or family member [] Provided Communion [] Anointing/[place] [] Salvation [x] Completed spiritual assessment [] Other: Impact on Illness or Injury [] Angry [] Fearful [] Anxious [] Often cries [] Exhaustion [] Unable to work [] Unable to attend jew [] Unable to walk/stand [] Unable to read [] Unable to drive [] Unable to eat/drink [] Unable to sleep [] Unable to be with family [] Patient intubated [] Other: Summary Time spent with patient 10 min
--- NOTE | 2023-08-14 10:10 | P.DS_ITS ---
Discharge Providers [employer] Date of Admission: 08/13/23 13:25 Date of Discharge: 08/14/23 Attending Provider at Admission: Jaycob Ramachandran MD Attending Provider at Discharge: Jaycob Ramachandran MD Consults: none Primary [employer]: Jaycob Ramachandran MD Primary Care Provider: Cindy Cervantes DO Diagnoses at Discharge Discharge Diagnosis (1) S/P hysterectomy: Details from hospital stay: patient underwent total abdominal hysterectomy without any complications did well postop was discharged home on first postop day Status: Acute Reason for Visit Reason for Visit: N93.9 Brief History: 37 y.o. h/o heavy periods with severe cramps patient scheduled for hysterectomy for definitive treatment Hospital Course Hospital Course patient underwent total abdominal hysterectomy without any complications did well postop was discharged home on first postop day Physical Exam Narrative: Comfortable Awake, alert Afebrile, VS normal Lungs: clear Cor: RRR Abd: soft, nondistended nontender No rebound incision clean and dry Ext: nontender Urinary Catheter Management: Solomon: Cath Placed During This Visit: yes, but has since been removed by the nurse Reason for Continuing Indwelling Catheter: Decision to DC Catheter Urinary Catheter Date of Insertion: 08/13/23 Urinary Catheter Time of Insertion: 11:00 Date Urinary Catheter Removed: 08/14/23 Time Urinary Catheter Discontinued: 06:15 Discharge Data Studies Completed and Pending Pending at discharge Category Date Time Status Pathology: Surgical [PTH] Routine Pth 08/13/23 12:13 Received Laboratory Results WBC 14.84 10^3/uL (3.29-11.43) H 08/14/23 05:48 RBC 3.09 10^6/uL (3.85-5.65) L 08/14/23 05:48 Hgb 9.50 g/dL (11.27-16.99) L 08/14/23 05:48 Hct 28.9 % (36-47) L 08/14/23 05:48 MCV 93.5 fl (85-98) 08/14/23 05:48 MCH 30.7 pg (27-33) 08/14/23 05:48 MCHC 32.9 g/dL (30-55) 08/14/23 05:48 RDW 12.6 % (12.1-15.1) 08/14/23 05:48 Plt Count 262 10^3/cmm (157-399) 08/14/23 05:48 MPV 10.6 fL (7.4-10.4) H 08/14/23 05:48 Urine HCG, Qual Negative (Negative) 08/13/23 10:15 Procedures Performed total abdominal hysterectomy Vitals Last Vital Signs Temp 98.3 F 08/14/23 04:00 Pulse 84 08/14/23 11:11 Resp 17 08/14/23 11:11 BP 95/58 08/14/23 11:11 Pulse Ox 97 08/14/23 11:11 O2 Del Method Room Air 08/14/23 07:34 Results Labs OB ([facility]): Hct 28.9 % (36-47) L 08/14/23 Hgb 9.50 g/dL (11.27-16.99) L 08/14/23 Plt Count 262 10^3/cmm (157-399) 08/14/23 HCG, Qual Negative (Negative) 02/21/21 Discharge Plan Discharge Patient Disposition: Home Condition: Stable Prescriptions: New Percocet 10-325 mg tablet 1 tab PO Q8H PRN (Reason: pain) Qty: 30 0RF Continued sertraline 50 mg tablet 50 mg PO DAILY levocetirizine 5 mg tablet 5 mg PO DAILY acetaminophen [Tylenol] 325 mg Tablet 325 mg PO QID PRN (Reason: PAIN/FEVER) dimenhydrinate [Dramamine] 50 mg Tablet 50 mg PO Q8H PRN (Reason: UNKNOWN) Excedrin Migraine 250-250-65 mg Tablet 1 tab PO Q6H PRN (Reason: Migraine Headache) fluticasone propion-salmeterol [Advair Diskus] 250-50 mcg/dose blister with device 250 inh INHALATION 2XD latanoprost 0.005 % drops 0.005 drp ophthalmic (eye) DAILY Rx Instructions: see instructions Discharge Orders: Discharge Order (Routine); Ordered 08/14/23 Ordered By: Jaycob Ramachandran Referrals: Jaycob Ramachandran MD [Physician] - (We have notified your physician's clinic of the need for a follow-up appointment to be scheduled. If you have not heard from them within the next 2 business days, please call them directly. ) Discharge Diet: Usual diet Discharge Activity: Increase activity as tolerated Patient Instructions: Oxycodone/Acetaminophen (By mouth) (Percocet, Roxicet), Hysterectomy (DC), OB Abdominal Surgery - [facility], OB Food/Drug Interaction Guide, Opioid Safety Discharge Attestations [employer] Time Spent in Discharge Care*: less than 30 min Coding Level of Care Code Acute Code for Chg Fwd Diagnoses S/P hysterectomy Z90.710 Time Spent (min) 20
--- NOTE | 2023-08-14 10:10 | P.PN_ITS ---
[employer] Subjective 2 Subjective: Interval history: c/o mild pain, relieved with pain medications no bleeding tolerating PO voiding well ambulating Vitals/I&O/Wt Last Vital Signs Temp 98.3 F 08/14/23 04:00 Pulse 84 08/14/23 11:11 Resp 17 08/14/23 11:11 BP 95/58 08/14/23 11:11 Pulse Ox 97 08/14/23 11:11 O2 Del Method Room Air 08/14/23 07:34 08/14/23 08/14/23 08/14/23 06:59 14:59 22:59 Intake Total 1000 / 6609.167 994.583 / 994.583 Output Total 1150 / 1300 Balance -150 / 5309.167 994.583 / 994.583 Weight last 48 hrs Weight 110 lb 4.8 oz Weight 103 lb 6 oz Weight 139 lb Physical Exam 2 Narrative: Comfortable Awake, alert Afebrile, VS normal Lungs: clear Cor: RRR Abd: soft, nondistended nontender No rebound incision clean and dry Ext: nontender Urinary Catheter Management: Solomon: Cath Placed During This Visit: yes, but has since been removed by the nurse Reason for Continuing Indwelling Catheter: Decision to DC Catheter Urinary Catheter Date of Insertion: 08/13/23 Urinary Catheter Time of Insertion: 11:00 Date Urinary Catheter Removed: 08/14/23 Time Urinary Catheter Discontinued: 06:15 Data 08/14/23 05:48 A&P Assessment and plan (1) S/P hysterectomy: POD #1 total abdominal hysterectomy Will discharge patient to home Instructions / precautions given Call / return immediately if fever, chills, nausea, vomiting, worsening pain, vaginal bleeding, chest pain, shortness of breath, leg pain or swelling Return to see me in one week Attestations 2 Medical Necessity Statement*: patient s/p hysterectomy, plan discharge home today Coding Level of Care Code Acute Code for Chg Fwd Diagnoses S/P hysterectomy Z90.710 Time Spent (min) 20
[2023-08-14] MEDS: HYDROcodone-acetaminophen 5-325 mg Tablet PO (10:37)
[2023-08-14 11:11] VITALS: BP 95/58; PULSE 84; RESP 17; O2SAT 97
== END 2023-08-14 11:13 | disposition home or self-care (01) | DRG 743 ==
LOC: MEDSURG 17:03
PROVIDERS: Anesthesiology; Admitting Provider Obstetrics & Gynecology; PCP Family Medicine; Visit Provider Obstetrics & Gynecology
PROC: 0UT90ZZ Resection of Uterus, Open Approach (ICD-10-PCS; CPT 58150; 2023-08-13 10:20)
DX: N92.0 Excessive and frequent menstruation with regular cycle (principal); N93.9 Abnormal uterine and vaginal bleeding, unspecified; N83.292 Other ovarian cyst, left side
CPT/HCPCS: 36415; 51702; 81025; 84703; 85014; 85018; 85027; 88307; J0131; J1100; J1170; J1200; J1885; J2250; J2405; J2704; J2710; J3010; J3490; J7030; J7121; P9045

== ENCOUNTER 2023-08-19 15:21 | Emergency (ER) | payer MEDICAID, SELFPAY ==
[2023-08-19 15:33] VITALS: BP 110/76; PULSE 94; RESP 16; TEMP 36.8; O2SAT 98
[2023-08-19 16:16] LABS: Basophils # 0.1 10^3/uL (0.0-0.1); Basophils % 0.7 %; Eosinophils # 0.5 10^3/uL (0.0-0.8); Eosinophils % 5.3 %; Hematocrit 31.3 % (36-47); Lymphocytes # 2.7 10^3/uL (0.8-4.8); Lymphocytes % 28.1 %; Mean Corpuscular HGB Conc 32.9 g/dL (30-55); Mean Corpuscular Hemoglobin 29.7 pg (27-33); Mean Corpuscular Volume 90.2 fl (85-98); Mean Platelet Volume 10.4 fL (7.4-10.4); Monocytes # 0.6 10^3/uL (0.2-0.9); Monocytes % 6.3 %; Neutrophils # 5.72 10^3/uL (1.8-7.7); Neutrophils % 59.2 %; Nucleated Red Blood Cells % 0 %; Platelet Count 404 10^3/cmm (157-399); Red Blood Count 3.47 10^6/uL (3.85-5.65); Red Cell Distribution Width 12.3 % (12.1-15.1); White Blood Count 9.67 10^3/uL (3.29-11.43)
--- NOTE | 2023-08-19 16:34 | ED_ITS ---
HPI - Abdominal Pain 2 General: Chief Complaint: Abdominal Pain Stated Complaint: abd pain, n/v Time Seen by Provider: 08/19/23 16:34 Source: patient Mode of arrival: ambulatory History of Present Illness: 37-year-old female recently had pelvic s urgery has a Pfannenstiel incision today. She was coughing and felt a ripping sensation on the left side of the incision became quite concerned. She has not had any active drainage or bleeding from the wound. No fever sweats or chills no dysuria urgency or frequency or hematuria. MD elicited complaint: abdominal pain Associated Symptoms: Denies chills, dysuria and fever(s) Review of Systems 2 Const: Denies: fever(s) or chills Card: Denies: chest pain Resp: Denies: dyspnea GI: Denies: abdominal pain : Denies: dysuria, urinary frequency or urinary urgency Musc: Denies: neck pain or back pain Skin/Breast: Denies: rash PFSH ED 2 PFSH: Medical History No pertinent family history Surgical History S/P hysterectomy No pertinent past surgical history Family History Mother Breast cancer Diabetes Heart disease Hyperlipidemia Stroke Grandmother Breast cancer paternal maternal Diabetes maternal Heart disease maternal Family/Other Breast cancer maternal aunt Colon cancer maternal cousin maternal aunt Diabetes maternal Grandfather Diabetes paternal Father Hyperlipidemia Sister Ovarian cancer Uterine cancer Denies family history of Prostate cancer Hypertension Physical Exam 2 Const: GENERAL APPEARANCE: cooperative and comfortable O RIENTATION/CONSCIOUSNESS: Yes awake, Yes oriented to person, Yes oriented to place and Yes oriented to time HENMT: COMMON NORMALS: normocephalic, atraumatic and hearing grossly normal bilaterally HEAD & SCALP: normocephalic and atraumatic Resp: COMMON NORMALS: normal respiratory effort, No retractions, No use of accessory muscles and clear to auscultation bilaterally AUSCULTATION: clear to auscultation bilaterally Cardio: COMMON NORMALS: regular rate, regular rhythm and No murmurs present (Cardio) RATE: regular rate RHYTHM: regular rhythm GI: COMMON NORMALS: Soft to palpation and No hepatosplenomegaly present A USCULTATION: Yes normoactive bowel sounds PALPATION: Yes Soft to palpation, No Tenderness to palpation present (GI), No Guarding due to palpation present (GI) and Yes No hepatosplenomegaly present OTHER: Emanation of the wound no evidence of dehiscence no defects no palpable herniations. : COMMON NORMALS: Yes no CVA tenderness BLADDER/KIDNEY EXAM: Yes no CVA tenderness Back/Pelvis: COMMON NORMALS: no CVA tenderness Extremity: COMMON NORMALS: normal to inspection, capillary refill normal, no clubbing, cyanosis or edema, no calf tenderness and no pedal edema Neuro: SENSORIUM/ORIENTATION: Yes oriented to person, Yes oriented to place and Yes oriented to time Skin: COMMON NORMALS: no rashes or lesions noted GENERAL SKIN EXAM: no rashes or lesions noted Course 2 Vital Signs: Vital signs: Vital Signs Temperature 98.2 F 08/19/23 15:33 Pulse Rate 108 H 08/19/23 17:12 Respiratory Rate 16 08/19/23 15:33 Blood Pressure 108/79 08/19/23 17:12 Pulse Oximetry 98 08/19/23 17:12 Oxygen Delivery Me thod Room Air 08/19/23 15:33 MDM - Abdominal Pain Medical Decision Making No signs of wound dehiscence or defect at this point. With Valsalva maneuver unable to produce any bulging at the wound. Recommend continued activity restrictions per discharge instructions from her surgeon and follow-up with surgery as planned return if has further problems Medical Records I reviewed the patient's medical records. Lab Data I reviewed the patient's lab results. 08/19/23 15:42 08/19/23 15:42 Labs/Radiology: Laboratory Results WBC 9.67 10^3/uL (3.29-11.43) 08/19/23 15:42 RBC 3.47 10^6/uL (3.85-5.65) L 08/19/23 15:42 Hgb 10.30 g/dL (11.27-16.99) L 08/19/23 15:42 Hct 31.3 % (36-47) L 08/19/23 15:42 MCV 90.2 fl (85-98) 08/19/23 15:42 MCH 29.7 pg (27-33) 08/19/23 15:42 MCHC 32.9 g/dL (30-55) 08/19/23 15:42 RDW 12.3 % (12.1-15.1) 08/19/23 15:42 Plt Count 404 10^3/cmm (157-399) H 08/19/23 15:42 MPV 10.4 fL (7.4-10.4) 08/19/23 15:42 Neut % (Auto) 59.2 % 08/19/23 15:42 Lymph % (Auto) 28.1 % 08/19/23 15:42 [place] % (Auto) 6.3 % 08/19/23 15:42 Eos % (Auto) 5.3 % 08/19/23 15:42 Baso % (Auto) 0.7 % 08/19/23 15:42 Neut # (Auto) 5.72 10^3/uL (1.8-7.7) 08/19/23 15:42 Lymph # (Auto) 2.7 10^3/uL (0.8-4.8) 08/19/23 15:42 [place] # (Auto) 0.6 10^3/uL (0.2-0.9) 08/19/23 15:42 Eos # (Auto) 0.5 10^3/uL (0.0-0.8) 08/19/23 15:42 Baso # (Auto) 0.1 10^3/uL (0.0-0.1) 08/19/23 15:42 Nucleated RBC % (auto) 0 % 08/19/23 15:42 Nucleated RBCs # 0.0 /100WBC 08/19/23 15:42 Sodium 138 mmol/L (136-145) 08/19/23 15:42 Potassium 4.3 mmol/L (3.5-5.1) 08/19/23 15:42 Chloride 101 mmol/L (98-107) 08/19/23 15:42 Carbon Dioxide 25 mmol/L (22-29) 08/19/23 15:42 Anion Gap 16.3 (5-19) 08/19/23 15:42 BUN 10 mg/dL (6-20) 08/19/23 15:42 Creatinine 0.5 mg/dL (0.5-0.9) 08/19/23 15:42 GFR Calculation 138.8 mL/min (90-130) H 08/19/23 15:42 Glucose 117 mg/dL (65-115) H 08/19/23 15:42 Calculated Osmolality 286 mOsm/kg (285-295) 08/19/23 15:42 Calcium 9.4 mg/dL (8.5-10.5) 08/19/23 15:42 Total Bilirubin 0.2 mg/dL (0.15-1.2) 08/19/23 15:42 AST 17 U/L (0-32) 08/19/23 15:42 ALT 14 U/L (0-33) 08/19/23 15:42 Alkaline Phosphatase 59 U/L (35-105) 08/19/23 15:42 Total Protein 7.0 g/dL (6.6-8.7) 08/19/23 15:42 Albumin 4.1 g/dL (3.5-5.2) 08/19/23 15:42 Globulin 2.9 g/dL (1.3-4.6) 08/19/23 15:42 Lipase 17 U/L (13-60) 08/19/23 15:42 HCG, Qual Negative (Negative) 08/19/23 15:42 No radiology studies performed this visit Discharge Plan Discharge Patient Disposition: Home Clinical Impression: Abdominal wall pain Condition: Stable Prescriptions: New ondansetron HCl 4 mg tablet 4 mg PO Q6H PRN (Reason: nausea and vomiting) Qty: 20 0RF No Action oxycodone-acetaminophen [Percocet] 10-325 mg tablet 1 tab PO Q8H PRN (Reason: pain) 5 Days Qty: 30 0RF sertraline 50 mg tablet 50 mg PO DAILY levocetirizine 5 mg tablet 5 mg PO DAILY acetaminophen [Tylenol] 325 mg Tablet 325 mg PO QID PRN (Reason: PAIN/FEVER) dimenhydrinate [Dramamine] 50 mg Tablet 50 mg PO Q8H PRN (Reason: UNKNOWN) Excedrin Migraine 250-250-65 mg Tablet 1 tab PO Q6H PRN (Reason: Migraine Headache) fluticasone propion-salmeterol [Advair Diskus] 250-50 mcg/dose blister with device 250 inh INHALATION 2XD latanoprost 0.005 % drops 0.005 drp ophthalmic (eye) DAILY Rx Instructions: see instructions Discharge Orders: Discharge ED (Routine); Ordered 08/19/23 Ordered By: Cali Sanchez Referrals: Cindy Cervantes DO [Primary Care Provider] - Discharge Diet: Usual diet Discharge Activity: Limit activity as instructed Patient Instructions: Opioid Safety, Pain Management Activity Restrictions/Additional Instructions: Thank you for choosing [facility] for your healthcare needs today. Please realize this is an emergency room and that we are providing you with a medical screening exam and this may not be complete and all inclusive of all the testing and or work up that you may need to determine your ailment or severity of your illness. It is very important that you follow up as instructed or that you return to the Emergency Department should you have concerns or if your condition changes or worsens in any way. Use ondansetron as needed for nausea or vomiting you may also take along with your pain medications to prevent nausea associated with the pain medication. Follow-up with your primary care doctor or chief petroleum engineer as needed. Continue the postop activity restrictions you were given by the chief petroleum engineer. Coding Level of Care Code ED [employer] for [employer]
[2023-08-19 16:37] LABS: Alanine Aminotransferase 14 U/L (0-33); Albumin Level 4.1 g/dL (3.5-5.2); Alkaline Phosphatase 59 U/L (35-105); Anion Gap 16.3 (5-19); Aspartate Amino Transferase 17 U/L (0-32); Blood Urea Nitrogen 10 mg/dL (6-20); Calcium 9.4 mg/dL (8.5-10.5); Carbon Dioxide 25 mmol/L (22-29); Chloride 101 mmol/L (98-107); Globulin 2.9 g/dL (1.3-4.6); Glomerular Filtration Rate 138.8 mL/min (90-130); Glucose 117 mg/dL (65-115); Lipase 17 U/L (13-60); Osmolality Calculated 286 mOsm/kg (285-295); Potassium 4.3 mmol/L (3.5-5.1); Sodium 138 mmol/L (136-145); Total Bilirubin 0.2 mg/dL (0.15-1.2)
[2023-08-19 16:41] LABS: HCG, Serum Qual Negative (Negative)
[2023-08-19 17:12] VITALS: BP 108/79; PULSE 108; O2SAT 98
== END 2023-08-19 17:15 | disposition home or self-care (01) ==
PROVIDERS: Emergency Medicine; Emergency Provider Family Medicine; PCP Family Medicine
DX: R10.32 Left lower quadrant pain (principal)
CPT/HCPCS: 36415; 80053; 83690; 84703; 85025; 99283

== ENCOUNTER 2023-12-02 15:19 | Outpatient (CLI) | payer MEDICAID, SELFPAY ==
--- NOTE | 2023-12-02 15:23 | XRR_ITS ---
PROCEDURE INFORMATION: Exam: XR Right Wrist Exam date and time: 12/02/2023 3:25 PM Age: 38 years old Clinical indication: Injury or trauma; Fall; Blunt trauma (contusions or hematomas); Wrist; Right; Injury date: 2 days ago; Additional info: Right wrist pain TECHNIQUE: Imaging protocol: Radiologic exam of the right wrist. Views: 3 or more views. COMPARISON: No relevant prior studies available. FINDINGS: Bones/joints: Normal. Soft tissues: Normal. XR/XR wrist RT min 3V* [id number] IMPRESSION: No acute findings.
== END 2023-12-02 15:20 | disposition home or self-care (01) ==
LOC: RAD 15:21
PROVIDERS: PCP Family Medicine; Visit Provider Nurse Practitioner Family
DX: M25.531 Pain in right wrist (principal)
CPT/HCPCS: 73110

== ENCOUNTER 2024-04-18 07:26 | Outpatient (CLI) | payer MEDICAID, SELFPAY ==
--- NOTE | 2024-04-18 07:30 | CT_ITS ---
WS: [id number] CT PARANASAL SINUSES HISTORY: ATYPICAL FACIAL PAIN/CHRONIC SINUSITIS,UNSPECIFIED TECHNIQUE: Contiguous 2.5 mm axial images obtained through the sinuses. Images are reconstructed in s agittal and coronal planes. All CT scans at [facility] use at least one of these dose optimiz ation techniques: automated exposure control; mA and/or kV adjustment per patient size (includes targ eted exams where dose is matched to clinical indication); or iterative reconstruction. DLP: 353.74 mGy.cm COMPARISON: None available. Frontal sinuses: Frontal sinuses are not pneumatized. Beginning in the frontal ethmoid recesses there is increased pneumatization. Sphenoid sinus: Normal. Ethmoid sinuses: Mild mucoperiosteal thickening involving the anterior and posterior RIGHT ethmoid ai r cells. Otherwise negative. Maxillary sinus: Mild bilateral mucoperiosteal thickening. There is a very small air-fluid level LEFT maxillary sinus. Ostiomeatal unit: There is a very small amount of soft tissue obstructing the RIGHT ostiomeatal unit. No obstruction on the LEFT. Normal appearance of the cribriform plate. Moderate curvature to the LEFT of the nasal septum without significant bony spurring. Soft tissues the orbits and globes are negative. Mastoid air cells as visualized are clear. CT/CT sinus wo con* [id number] IMPRESSION: 1. Very minimal paranasal sinus disease. 2. Minimal mucoperiosteal thickening in the maxillary sinuses with a very smal l air-fluid level on the LEFT. 3. Minimally obstructed RIGHT ostiomeatal unit. 4. Frontal sinuses are not pneumatized.
== END 2024-04-18 07:27 | disposition home or self-care (01) ==
LOC: RAD 07:28
PROVIDERS: PCP Family Medicine; Visit Provider Otolaryngology
DX: J34.2 Deviated nasal septum (principal); G50.1 Atypical facial pain; J32.9 Chronic sinusitis, unspecified; J34.89 Other specified disorders of nose and nasal sinuses
CPT/HCPCS: 70486

== ENCOUNTER 2025-06-22 15:57 | Outpatient (CLI) | payer MEDICAID, SELFPAY ==
--- NOTE | 2025-06-22 16:02 | XR_ITS ---
WS: [id number] Exam: XR sacrum coccyx min 2V [id number] Date/Time of Exam: 06/22/2025 4:02 PM Reason For Exam: LOW BACK PAIN No fracture or bone destruction. The SI joints are unremarkable. Adjacent soft tissues are normal. XR/XR sacrum coccyx min 2V [id number] IMPRESSION: 1. Negative sacrum and coccyx.
--- NOTE | 2025-06-22 16:02 | XR_ITS ---
WS: [id number] Exam: XR lumbar spine min 4V [id number] Date/Time of Exam: 06/22/2025 4:02 PM Reason For Exam: LOW BACK PAIN DLP: No fracture or malalignment. Disc bases are preserved. Posterior elements are intact. Slight spondylosis. XR/XR lumbar spine min 4V [id number] IMPRESSION: 1. Negative L spine study.
== END 2025-06-22 15:58 | disposition home or self-care (01) ==
LOC: RAD 15:58
PROVIDERS: PCP Family Medicine; Visit Provider Family Medicine
DX: M54.50 Low back pain, unspecified (principal)
CPT/HCPCS: 72110; 72220